=== PATIENT | female | born 1950 | race Caucasian/White ===

== ENCOUNTER 2017-10-24 15:38 | Inpatient (IN) | payer MEDICARE ==
[2017-10-24 16:41] LABS: Bilirubin Small (Negative); Blood, Urine Trace (Negative); Glucose, Urine (Dipstick) 250 mg/dL (Negative); Ketone, Urine Negative (Negative); Nitrite Negative (Negative); Protein, Urine (Dipstick) 100 mg/dL (Neg-Trace)
[2017-10-24 16:43] LABS: #Eosinphils 0.1 thou/uL (0.0-0.7); #Lymphocytes 1.8 thou/uL (1.20-3.40); #Monocytes 1.1 thou/uL (0.11-0.59); #Neutrophils 16.7 thou/uL (1.40-6.50); %Basophils 0.1 % (0.0-1.0); %Eosinophils 0.5 % (0.0-10.0); %Monocytes 5.7 % (0.0-10.0); Hematocrit 31.7 % (36.0-47.0); Mean Platelet Volume 6.4 fL (7.4-10.4); White Blood Cell (WBC) Count 19.7 thou/uL (4.8-10.8)
[2017-10-24 16:52] LABS: Bacteria/HPF 1+ HPF (None Seen)
[2017-10-24 16:53] LABS: Yeast-All Forms None Seen HPF (None Seen)
--- NOTE | 2017-10-24 17:18 | RAD ---
PORTABLE CHEST: 10/24/17 HISTORY: Pneumonia. No comparison. There is patchy infiltrate in the left mid and lower lung. Heart is mildly enlarged. No evidence of v ascular congestion. No significant effusion. IMPRESSION: Evidence of infiltrate in the left mid and lower lung. Upright PA and lateral views of the chest is r ecommended for better evaluation of the lung marques. POS: [facility]
[2017-10-24] MEDS ORDERED: Multivitamins, Adult 10 ML, Thiamine HCl 100 MG, Folic Acid 1 MG in Dextrose 5 %-0.45 %... IV ONE ×4 (17:30)
[2017-10-24 18:15] LABS: ALT (SGPT) 151 U/L (8-55); AST (SGOT) 191 U/L (5-34); Alkaline Phosphatase 689 U/L (40-150); Anion Gap 12 mmol/L (10-20); BUN (Urea Nitrogen) 10 mg/dL (9.8-20.1); Bilirubin, Total 0.3 mg/dL (0.2-1.2); Calc. Creatinine Clearance 0 mL/min (70-130); Calcium 8.3 mg/dL (7.8-10.44); Carbon Dioxide 23 mmol/L (23-31); Chloride 106 mmol/L (98-107); Estimated GFR-MDRD 69; Lipase 6 U/L (8-78); Protein, Total 6.5 g/dL (6.0-8.3)
[2017-10-24] MEDS ORDERED: Ondansetron HCl/PF 4 MG/2 ML Vial IVP PRN (19:07)
[2017-10-24] MEDS ORDERED: Ondansetron ODT 4 MG TAB SL PRN (19:07)
[2017-10-24] MEDS ORDERED: Zolpidem Tartrate 5 MG TAB PO PRN (19:11)
[2017-10-24] MEDS ORDERED: Acetaminophen 325 MG TAB PO PRN (19:11)
[2017-10-24] MEDS ORDERED: Guaifenesin DM 100-10/5 ML UDCUP PO PRN (19:11)
[2017-10-24] MEDS ORDERED: Azithromycin 500 MG in Sodium Chloride 0.9% 250 ML 250 ML IVPB SCH (20:00)
--- NOTE | 2017-10-24 22:25 | HP ---
DATE OF ADMISSION: 10/24/2017 ADMITTING PHYSICIAN: Dr. Bonifacio Garcia. PRIMARY CARE PHYSICIAN: Dr. Alek Powell. CHIEF COMPLAINT: Shortness of breath, chills. HISTORY OF PRESENT ILLNESS: Patient is a 67-year-old female that presents complaining of 4 to 5 days of upper respiratory symptoms. She was seen and assessed by her primary care physician and started Levaquin, Friday. She presents with continued shortness of breath, coughing, and chills. She denie s chest pain, productive sputum, or any other review of systems at this time. REVIEW OF SYSTEMS: The following complete review of systems was negative, unless otherwise mentioned in the HPI or below: Constitutional: Weight loss or gain, sense of well-being, ability to conduct usual activities, exerc ise tolerance. Skin/Breast: Rash, itching, changes in hair growth or loss, nail changes, breast lumps, tenderness, swelling, nipple discharge. Eyes: Vision, double vision, tearing, blind spots, pain. ENT/Mouth: Headaches (location, time of onset, duration, precipitating factors), vertigo, lightheade dness, injury. Vision, double vision, tearing, blind spots, pain, nose bleeding, colds, obstruction, discharge, dental difficulties, gingival bleeding, dentures, neck stiffness, pain, tenderness, masses in thyroid or other areas. Cardiovascular: Precordial pain, substernal distress, palpitations, syncope, dyspnea on exertion, or thopnea, nocturnal paroxysmal dyspnea, edema, cyanosis, hypertension, heart murmurs, varicosities, ph lebitis, claudication. Respiratory: Pain, shortness of breath, wheezing, stridor, cough, hemoptysis, fever or night sweats. Gastrointestinal: Poor appetite, dysphagia, indigestion, abdominal pain, heartburn, eructation, naus ea, vomiting, hematemesis, jaundice, constipation, or diarrhea, abnormal stools (bijan-colored, tarry, bloody, greasy, foul smelling), flatulence, hemorrhoids, recent changes in bowel habits. Genitourinary: Urgency, frequency, dysuria, nocturia, hematuria, polyuria, oliguria, unusual (or eloy nge in) color of urine, stones, hesitancy, change in size of stream, dribbling, acute retention or in continence, libido, potency. Musculoskeletal: Pain, swelling, redness or heat of muscles or joints, limitation, of motion, muscul ar weakness, atrophy, cramps. Neurologic/Psychiatric: Convulsions, paralyzes, tremor, incoordination, paresthesias, difficulties w ith memory of speech, sensory or motor disturbances, or muscular coordination (ataxia, tremor), emoti onal problems, anxiety, depression, previous psychiatric care, unusual perceptions, hallucinations. Allergy/Immunologic: Skin rash, anemia, bleeding tendency, polydipsia, polyuria, intolerance to heat or cold. PAST MEDICAL HISTORY: Significant for ETOH abuse. HOME MEDICATIONS: Levaquin 750 mg every day. ALLERGIES: No known drug allergies. PAST SURGICAL HISTORY: Surgery of cholecystectomy. Surgical history of hysterectomy. SOCIAL HISTORY: Once again, she drinks 6-8 beers daily. No tobacco. Lives with family. FAMILY HISTORY: Positive for alcoholism. PHYSICAL EXAMINATION: VITAL SIGNS: Temperature 98.4, blood pressure 123/81, pulse 91, respirations 16, and satting 100% on room air. GENERAL: She is in no acute distress, nontoxic, cooperative. HEAD: Normocephalic, atraumatic. EYES: PERRL. Extraocular muscles intact. ENT: Ears, nose and throat exam within normal limits. NECK: Supple, full range of motion. Trachea midline. CHEST: No respiratory distress, although the patient does have rhonchi and rales. CARDIOVASCULAR: Regular rate and rhythm. No murmur, regurg, or gallops. ABDOMEN: No peritoneal signs. No rigidity, no guarding, no pulsatile masses, no distention. Positi ve bowel sounds. EXTREMITIES: No clubbing, cyanosis, or edema. SKIN: Normal. Warm, dry, normal in color. PSYCHIATRIC: Normal affect. LABORATORY DATA AND IMAGES: CBC shows a white count of 19.7, hemoglobin 10, hematocrit 31.7, platele ts 691, 85% neutrophils. CMP shows sodium of 137, potassium 4.1, BUN 10, creatinine 0.83, glucose 10 8. AST 191, ALT 151, alkaline phosphatase 689, albumin 2.5, lipase 6. Urinalysis phuong, cloudy, pos itive for protein, 250 glucose, trace blood, trace leukocyte esterase. Urine bacteria 1+, but 11-20 squamous cells indicating possible contamination. Chest x-ray performed in the emergency room shows evidence of infiltrate in the left mid and left lower lung. ASSESSMENT AND PLAN: 1. Left middle lower lobe pneumonia. 2. Alcohol abuse. 3. Transaminitis. PLAN: Patient will be admitted to the medical floor, we will treat her with Rocephin and azithromyci n. Patient will be tested for acute hepatitis. We will also administer IV fluids with multivitamins , thiamine, and folate. We will also watch the patient closely for development of delirium tremens. We will provide DVT prophylaxis with SCD devices. We will provide additional supportive therapy as needed.
[2017-10-24] MEDS: Sodium Chloride 0.9% 1,000 ML IV SCH (23:27)
[2017-10-24] MEDS: Azithromycin 500 MG in Sodium Chloride 0.9% 250 ML 250 ML IVPB SCH (23:28)
[2017-10-24] MEDS: Ibuprofen 200 MG TAB PO PRN (23:52)
[2017-10-25 04:41] VITALS: BMI 28.4
[2017-10-25 04:43] LABS: #Basophils 0.1 thou/uL (0.0-0.2); #Eosinphils 0.1 thou/uL (0.0-0.7); #Monocytes 1.2 thou/uL (0.11-0.59); %Basophils 0.4 % (0.0-1.0); %Eosinophils 0.9 % (0.0-10.0); %Lymphocytes 13.1 % (21.0-51.0); Hematocrit 24.6 % (36.0-47.0); Mean Platelet Volume 6.1 fL (7.4-10.4); Red Blood Cell (RBC) Count 2.92 mill/uL (4.20-5.40); White Blood Cell (WBC) Count 15.4 thou/uL (4.8-10.8)
[2017-10-25] MEDS: Sodium Chloride 0.9% 1,000 ML IV SCH (06:10)
--- NOTE | 2017-10-25 09:06 | PDOC.PN ---
- Subjective Encounter Start Date: 10/25/17 Encounter Start Time: 09:06 Subjective: feeling better, my appetite is better. fever last night - Objective MAR Reviewed: Yes Vital Signs & Weight: Vital Signs (12 hours) Temp Pulse Resp BP Pulse Ox 10/25/17 04:00 97.4 F L 61 20 112/70 100 10/24/17 23:54 100.3 F H 64 20 132/67 97 Weight Weight 145 lb 8.081 oz Result Diagrams: 10/25/17 03:34 10/24/17 17:43 Radiology Reviewed by me: Yes Phys Exam - Physical Examination Constitutional: NAD HEENT: PERRLA, moist MMs, sclera anicteric Neck: supple, full ROM Respiratory: no rhonchi Cardiovascular: RRR, no significant murmur Gastrointestinal: soft, non-tender, no distention, positive bowel sounds Musculoskeletal: no edema, pulses present, edema present Neurological: non-focal Psychiatric: normal affect, A&O x 3 Skin: no rash Dx/Plan (1) PNA (pneumonia) Code(s): J18.9 - PNEUMONIA, UNSPECIFIED ORGANISM Status: Acute (2) Transaminitis Code(s): R74.0 - NONSPEC ELEV OF LEVELS OF TRANSAMNS & LACTIC ACID DEHYDRGNSE Status: Acute - Plan cont current plan of care, plan discussed w/ family, continue antibiotics * .
[2017-10-25] MEDS ORDERED: cefTRIAXone\\ROCEPHIN 1 GM in Sodium Chloride 0.9% 100 ML IVPB SCH (14:15)
[2017-10-25] MEDS: Ibuprofen 200 MG TAB PO PRN (15:15)
[2017-10-25] MEDS ORDERED: cefTRIAXone\\ROCEPHIN 1 GM, Syringe 0.4 ML in Sterile Water 9.6 ML SLOW IVP SCH (18:00)
[2017-10-25] MEDS: Azithromycin 500 MG in Sodium Chloride 0.9% 250 ML 250 ML IVPB SCH (22:38)
[2017-10-26] MEDS: Ibuprofen 200 MG TAB PO PRN ×2 (03:31→19:06)
[2017-10-26] MEDS ORDERED: FLU VACC TS2017-18 (>65YR) 0.5 ML SYRINGE IM ONE (09:00)
[2017-10-26] MEDS ORDERED: Multivit, Therapeutic 1 TAB PO SCH ×2 (09:30→10:30)
[2017-10-26] MEDS ORDERED: Folic Acid 1 MG TAB PO SCH ×2 (09:30→10:30)
[2017-10-26 09:52] LABS: #Basophils 0.1 thou/uL (0.0-0.2); #Eosinphils 0.4 thou/uL (0.0-0.7); #Lymphocytes 2.2 thou/uL (1.20-3.40); #Monocytes 1.3 thou/uL (0.11-0.59); #Neutrophils 13.7 thou/uL (1.40-6.50); %Basophils 0.4 % (0.0-1.0); %Eosinophils 2.1 % (0.0-10.0); %Lymphocytes 12.6 % (21.0-51.0); %Monocytes 7.2 % (0.0-10.0); Hematocrit 25.4 % (36.0-47.0); Mean Platelet Volume 5.8 fL (7.4-10.4); Red Blood Cell (RBC) Count 3.05 mill/uL (4.20-5.40); White Blood Cell (WBC) Count 17.6 thou/uL (4.8-10.8)
[2017-10-26 10:06] LABS: ALT (SGPT) 134 U/L (8-55); AST (SGOT) 136 U/L (5-34); Alkaline Phosphatase 571 U/L (40-150); Anion Gap 9 mmol/L (10-20); BUN (Urea Nitrogen) 9 mg/dL (9.8-20.1); Bilirubin, Total 0.3 mg/dL (0.2-1.2); Calc. Creatinine Clearance 69 mL/min (70-130); Calcium 8.5 mg/dL (7.8-10.44); Carbon Dioxide 26 mmol/L (23-31); Chloride 106 mmol/L (98-107); Estimated GFR-MDRD 70; Globulin 3.5 g/dL (2.4-3.5); Magnesium 1.7 mg/dL (1.6-2.6); Phosphorus 3.9 mg/dL (2.3-4.7); Protein, Total 5.6 g/dL (6.0-8.3)
[2017-10-26] MEDS ORDERED: Cefepime 2 GM in Sodium Chloride 0.9% 100 ML IVPB SCH (13:45)
[2017-10-26] MEDS: Cefepime 2 GM, Syringe 2.5 ML in Sterile Water 10 ML SLOW IVP SCH (15:42)
--- NOTE | 2017-10-26 17:07 | RAD ---
RADIOGRAPH CHEST 1 VIEW: Date: 10-26-17 Time: 4:38 p.m. HISTORY: 67-year-old female with pneumonia and persistent fever. COMPARISON: 10-24-17 FINDINGS: Again noted are the infiltrates in the left mid and lower lung zones, in a patchy, mixed interstitial and alveolar pattern, associated with a shaggy left heart border and left lower lobe air bronchogram . Also again noted is the shaggy right cardiac border. Adjacent focal nodular interstitial infiltrate in the right midlung zone appears worse on the current study compared to the previous. Lung volumes are again low. No pneumothorax. IMPRESSION: 1. Bilateral infiltrates, left greater than right. 2. The infiltrates appear slightly worse, especially on the right side, compared to two days ago. It is uncertain rather this apparent difference is real or is due to technical differences. Furthermore, it is uncertain which components of the infiltrates are chronic and which are acute. 3. Continued follow up is recommended. FELISHA POS: [facility]
[2017-10-26] MEDS: Saccharomyces boulardii 250 MG CAP PO SCH (20:25)
--- NOTE | 2017-10-26 21:05 | PDOC.PN ---
- Subjective Encounter Start Date: 10/26/17 Encounter Start Time: 14:30 Patient seen and examined. Feels gen weak. Cough with some production. No overnight events - Objective Vital Signs & Weight: Vital Signs (12 hours) Temp Pulse Resp BP Pulse Ox 10/26/17 19:50 100.5 F H 98 20 121/67 97 10/26/17 19:07 100.5 F H Weight Weight 145 lb 8.081 oz Result Diagrams: 10/27/17 04:30 10/27/17 04:30 Radiology Reviewed by me: Yes (CXR - left sided infiltrate) Phys Exam - Physical Examination Constitutional: NAD Respiratory: no wheezing Coarse bibasilar rales/rhonchi, Symmetrical, Trachea midline Cardiovascular: RRR, no rub no heaves/pulsations Gastrointestinal: soft, non-tender, no distention, positive bowel sounds Musculoskeletal: no edema Neurological: non-focal, normal sensation, moves all 4 limbs Psychiatric: normal affect, A&O x 3 Dx/Plan - Plan continue antibiotics, out of bed/ambulate, DVT proph w/SCDs IMPRESSION: 1. Sepsis due to CAP ?Klebsiella - failed outpt Rx - persistent fever 2. Chronic Alcoholism - counselled. 3. Abn LFTs - slowly improving 4. Chronic Anemia PLAN: * Change Ceftriaxone to Cefepime * Cont Azithromycin * AM labs * consult ID * Repeat CXR * RUQ ultrasound due to abn LFTs * Add thiamine/folic/MVM * Resp viral panel * Urine antigen for Strep pneumonia/Legionella Review of Systems - Review of Systems Constitutional: negative: Fever, Chills, Sweats, Weakness, Malaise Gastrointestinal: negative: Nausea, Vomiting, Abdominal Pain, Diarrhea, Constipation, Melena, Hematochezia Genitourinary: negative: Dysuria, Frequency, Incontinence, Hematuria, Retention - Medications/Allergies Allergies/Adverse Reactions: Allergies Allergy/AdvReac Type Severity Reaction Status Date / Time No Known Allergies Allergy Verified 10/25/17 04:39 Medications: Current Medications Acetaminophen (Tylenol) 650 mg PO Q4H PRN PRN Reason: Headache/Fever or Pain Folic Acid (Folvite) 1 mg PO DAILY [facility] Guaifenesin/Dextromethorphan (Robitussin Dm) 15 ml PO Q4H PRN PRN Reason: Cough Azithromycin 500 mg/ Sodium (Chloride) 250 mls @ 250 mls/hr IVPB Q24HR [facility] Last Admin: 10/25/17 22:38 Dose: 250 mls Cefepime HCl 2 gm/ Syringe 2.5 (ml/ Sterile Water) 12.5 mls @ 150 mls/hr SLOW IVP 0200,1400 [facility] Last Admin: 10/26/17 15:42 Dose: 12.5 mls Ibuprofen (Motrin) 600 mg PO Q6H PRN PRN Reason: fever Last Admin: 10/26/17 19:06 Dose: 600 mg Multivitamins (Theragran) 1 tab PO DAILY [facility] Saccharomyces Boulardii (Florastor) 250 mg PO HS [facility] Last Admin: 10/26/17 20:25 Dose: 250 mg Sodium Chloride (Flush - Normal Saline) 10 ml IVF PRN PRN PRN Reason: Saline Flush Thiamine HCl (Thiamine) 100 mg PO DAILY [facility]
[2017-10-26] MEDS: Azithromycin 500 MG in Sodium Chloride 0.9% 250 ML 250 ML IVPB SCH (22:31)
[2017-10-26 23:02] LABS: LegU Control Bar Appear? YES (CONTROL BAR); LegionellaU Control Bkground? CLEAR/WHITE (CLR/WHITE); Strp pneuU Control Background? CLEAR/WHITE (CLR/WHITE); Strp pneumo Control Bar Appear YES (CONTROL BAR)
[2017-10-27] MEDS: Cefepime 2 GM, Syringe 2.5 ML in Sterile Water 10 ML SLOW IVP SCH ×2 (03:00→15:09)
[2017-10-27 04:47] LABS: #Eosinphils 0.5 thou/uL (0.0-0.7); #Lymphocytes 1.8 thou/uL (1.20-3.40); #Monocytes 1.5 thou/uL (0.11-0.59); #Neutrophils 14.5 thou/uL (1.40-6.50); %Basophils 0.2 % (0.0-1.0); %Eosinophils 2.6 % (0.0-10.0); %Lymphocytes 9.8 % (21.0-51.0); %Monocytes 8.1 % (0.0-10.0); Hematocrit 25.4 % (36.0-47.0); Mean Platelet Volume 5.6 fL (7.4-10.4); Red Blood Cell (RBC) Count 3.06 mill/uL (4.20-5.40); White Blood Cell (WBC) Count 18.3 thou/uL (4.8-10.8)
[2017-10-27 05:03] LABS: ALT (SGPT) 135 U/L (8-55); AST (SGOT) 133 U/L (5-34); Alkaline Phosphatase 568 U/L (40-150); Anion Gap 10 mmol/L (10-20); BUN (Urea Nitrogen) 11 mg/dL (9.8-20.1); Bilirubin, Total 0.3 mg/dL (0.2-1.2); Calc. Creatinine Clearance 65 mL/min (70-130); Calcium 8.1 mg/dL (7.8-10.44); Carbon Dioxide 24 mmol/L (23-31); Chloride 106 mmol/L (98-107); Estimated GFR-MDRD 65; Globulin 3.4 g/dL (2.4-3.5); Protein, Total 5.4 g/dL (6.0-8.3)
[2017-10-27] MEDS: Folic Acid 1 MG TAB PO SCH (08:22)
[2017-10-27] MEDS: Multivit, Therapeutic 1 TAB PO SCH (08:22)
--- NOTE | 2017-10-27 08:36 | ULT ---
RIGHT UPPER QUADRANT ULTRASOUND: DATE: 10/27/17. COMPARISON: None. HISTORY: Abnormal liver function tests. TECHNIQUE: Multiplanar, cunningham scale sonographic imaging of the right upper quadrant obtained. FINDINGS: The pancreas is poorly assessed secondary to obscuration by bowel gas. No focal liver lesion or intrahepatic biliary dilatation. The common bile duct measures in the 5-7 m m range. The gallbladder is nonvisualized, presumably on the basis of prior cholecystectomy. The right kidney measures 10.4 cm in craniocaudal dimension. There is an exophytic cyst emanating fr om the upper pole of the right kidney measuring 3.7 cm. The right kidney demonstrates no evidence fo r stone, hydronephrosis, or mass lesion. IMPRESSION: Status post cholecystectomy. No acute findings. POS: [facility]
[2017-10-27] MEDS: NS 0.9% w/ 20 MEQ KCL 1,000 ML/1,000 ML BAG IV SCH ×2 (11:13→22:17)
[2017-10-27] MEDS: Potassium Chloride 20 MEQ TAB PO SCH ×2 (11:13→15:10)
[2017-10-27] MEDS: Ibuprofen 200 MG TAB PO PRN (17:14)
--- NOTE | 2017-10-27 17:20 | PDOC.PN ---
- Subjective Encounter Start Date: 10/27/17 Encounter Start Time: 13:00 Patient seen and examined. Feels gen weak. Productive cough. No overnight events - Objective MAR Reviewed: Yes Vital Signs & Weight: Vital Signs (12 hours) Temp Pulse Resp BP Pulse Ox 10/27/17 12:00 99.7 F H 85 20 106/66 97 10/27/17 08:12 98.5 F 90 20 134/77 97 10/27/17 08:00 98.5 F 90 20 Weight Weight 145 lb 8.081 oz I&O: 10/26/17 10/27/17 10/28/17 06:59 06:59 06:59 Intake Total 970 Balance 970 Result Diagrams: 10/27/17 04:30 10/27/17 04:30 Radiology Reviewed by me: Yes (CXR - worsening, RUQ - neg) Phys Exam - Physical Examination Constitutional: NAD Respiratory: no wheezing, no rhonchi B/L rales at bases Cardiovascular: RRR, no rub Gastrointestinal: soft Musculoskeletal: no edema Neurological: moves all 4 limbs Psychiatric: A&O x 3 Dx/Plan - Plan out of bed/ambulate, DVT proph w/SCDs IMPRESSION: 1. Sepsis due to CAP ?Klebsiella - failed outpt Rx - persistent fever 2. Chronic Alcoholism - counselled. 3. Abn LFTs - slowly improving 4. Chronic Anemia PLAN: * Cont Cefepime and Azithromycin * AM labs * Await ID input * Add thiamine/folic/MVM * Resp viral panel - neg * Urine antigen for Strep pneumonia/Legionella - neg Review of Systems - Review of Systems Cardiovascular: negative: Chest Pain, Palpitations, Orthopnea, Paroxysmal Noc. Dyspnea, Edema, Light Headedness Gastrointestinal: negative: Nausea, Vomiting, Abdominal Pain, Diarrhea, Constipation, Melena, Hematochezia - Medications/Allergies Allergies/Adverse Reactions: Allergies Allergy/AdvReac Type Severity Reaction Status Date / Time No Known Allergies Allergy Verified 10/25/17 04:39 Medications: Current Medications Acetaminophen (Tylenol) 650 mg PO Q4H PRN PRN Reason: Headache/Fever or Pain Folic Acid (Folvite) 1 mg PO DAILY [facility] Last Admin: 10/27/17 08:22 Dose: 1 mg Guaifenesin/Dextromethorphan (Robitussin Dm) 15 ml PO Q4H PRN PRN Reason: Cough Azithromycin 500 mg/ Sodium (Chloride) 250 mls @ 250 mls/hr IVPB Q24HR [facility] Last Admin: 10/26/17 22:31 Dose: 250 mls Cefepime HCl 2 gm/ Syringe 2.5 (ml/ Sterile Water) 12.5 mls @ 150 mls/hr SLOW IVP 0200,1400 [facility] Last Admin: 10/27/17 15:09 Dose: 12.5 mls Potassium Chloride/Sodium Chloride (Ns 0.9% W/ 20 Meq Kcl) 1,000 ml in 1,000 mls @ 75 mls/hr IV .[id number] [facility] Last Admin: 10/27/17 11:13 Dose: 1,000 mls Ibuprofen (Motrin) 600 mg PO Q6H PRN PRN Reason: fever Last Admin: 10/27/17 17:14 Dose: 600 mg Multivitamins (Theragran) 1 tab PO DAILY [facility] Last Admin: 10/27/17 08:22 Dose: 1 tab Potassium Chloride (K-Dur) 20 meq PO TID-WM [facility] Last Admin: 10/27/17 15:10 Dose: 20 meq Saccharomyces Boulardii (Florastor) 250 mg PO HS [facility] Last Admin: 10/26/17 20:25 Dose: 250 mg Sodium Chloride (Flush - Normal Saline) 10 ml IVF PRN PRN PRN Reason: Saline Flush Thiamine HCl (Thiamine) 100 mg PO DAILY [facility] Last Admin: 10/27/17 08:22 Dose: 100 mg
[2017-10-27] MEDS: Saccharomyces boulardii 250 MG CAP PO SCH (19:54)
--- NOTE | 2017-10-27 21:15 | CON ---
DATE OF CONSULTATION: 10/27/2017 REASON: Pneumonitis, weakness, anemia. HISTORY OF PRESENT ILLNESS: A 67-year-old who after her about 5 years ago, started uriel marquez more heavily usually from Friday until Friday. She would start drinking somewhere around 4:0 0 p.m. and would continue until late at night and was otherwise without any diagnosed medical problem s. A few months ago she noticed the onset of arthralgias which were in various joints and she also n oticed inability to grab thinks and weakness of the hand laundry folder right and the left side. She did not g o to a doctor and then worried too much about it and then about 3 weeks ago approximately, she starte d noticing progressively worsening weakness which is generalized, some dizziness and dry cough interm ittently. At that point, she quit completely intake of alcoholic beverages. She went to the emergen cy room at [facility] where she had an evaluation and was told to have abnormal l iver function tests and ammonia. She was given levofloxacin and discharged. She went to see Dr. Jack bocanegra later on because of lack of improvement and he referred her for admission here. Mild headaches intermittently. No visual symptoms, sore throat, odynophagia, dysphagia, no dyspnea, no sputum produ ction. No hemoptysis, no back pain, no abdominal pain or diarrhea. No genitourinary symptoms. Stil l with the weakness of the laundry folder in the hands and also weak in upper and lower extremities, some arthr algias. No skin disorder. No neurological findings otherwise. MEDICAL HISTORY: History of alcohol dependency syndrome for the past 5 years after her passe d away. ALLERGIES: None. PAST SURGICAL HISTORY: Cholecystectomy, hysterectomy. SOCIAL HISTORY: As above, Never a smoker. Lives by herself in an apartment. FAMILY HISTORY: Positive for alcoholism. PHYSICAL EXAMINATION: VITAL SIGNS: T-max 100.3 and now 100.5 recently, blood pressure 106/66, pulse 85, respirations 20, O 2 saturation 97%. SKIN: With no skin findings of significance, peripheral IV access. No Osman catheter. HEENT: Ocular movements are conjugate. Pale conjunctivae. Nasal passages patent. Oral cavity norm al. Numerous teeth in place with some decay. NECK: Supple, no jugular venous distention. LUNGS: With bibasilar inspiratory crackles. Symmetrically distributed right and left lungs. HEART: S1, S2, regular rate. No S3 or S4. ABDOMEN: Soft, not distended or tender. No ascites. No bladder distention. No organomegaly. Maribel ent has a very weak handgrip right and left side. She has weakness in the flexor and extensor muscle s of upper extremities as well as hip flexors are weak. Plantar responses are flexor. Pulses are 1+ in dorsalis pedis. No obvious joint inflammatory activity noted at this time. Cognitive function a ppears to be intact. LABORATORY DATA: White cell count 19.7, now 18.3, hemoglobin 8.1, MCV 82, platelets 562 with a predo minance of mature neutrophils, lymphocyte count 1.8. Chemistry with sodium 137, creatinine 0.87, AST 191, ALT 151, alkaline phosphatase 689 and now 568. CRP 15.85, globulin 3.4, albumin 2.5 and now 2. 0. Lipase normal. Urinalysis with proteinuria 100, glycosuria, elevated WBCs 11-20, RBCs 4-6. Legi onella pneumophila and strep pneumonia antigen negative, hepatitis serology negative. Chest x-ray wi th bilateral lung infiltrates, left greater than right. Abdominal ultrasound, cholecystectomy, but n o acute findings. ASSESSMENT: 1. Weakness of hand laundry folder and weakness in the upper extremities suggestive of myopathy. 2. Arthralgias 3. Chronic respiratory symptoms with cough and interstitial pneumonitis. 4. Elevated liver enzymes, either secondary to hepatitis or due to myopathy with muscle enzyme relea se. 5. Anemia with possible hemolysis. DISCUSSION: Differential diagnosis includes an autoimmune syndrome with either systemic lupus erythe matosus or dermatomyositis or other form of myositis, need to rule out HIV infection as usual and pos sibility of an infectious pneumonitis is less likely in view of the lack of response to treatment amanda s far. Check autoimmune panel, complement CPK, HIV, RPR.
[2017-10-27] MEDS: Azithromycin 500 MG in Sodium Chloride 0.9% 250 ML 250 ML IVPB SCH (22:15)
[2017-10-28] MEDS: Cefepime 2 GM, Syringe 2.5 ML in Sterile Water 10 ML SLOW IVP SCH ×2 (02:12→16:07)
[2017-10-28 04:36] LABS: #Basophils 0.1 thou/uL (0.0-0.2); #Eosinphils 0.5 thou/uL (0.0-0.7); #Lymphocytes 1.7 thou/uL (1.20-3.40); #Monocytes 1.7 thou/uL (0.11-0.59); #Neutrophils 14.5 thou/uL (1.40-6.50); %Basophils 0.4 % (0.0-1.0); %Eosinophils 2.6 % (0.0-10.0); %Lymphocytes 9.1 % (21.0-51.0); Hematocrit 23.3 % (36.0-47.0); Mean Platelet Volume 5.7 fL (7.4-10.4); White Blood Cell (WBC) Count 18.4 thou/uL (4.8-10.8)
[2017-10-28 04:45] LABS: Anion Gap 8 mmol/L (10-20); BUN (Urea Nitrogen) 13 mg/dL (9.8-20.1); Calc. Creatinine Clearance 69 mL/min (70-130); Calcium 8.1 mg/dL (7.8-10.44); Carbon Dioxide 23 mmol/L (23-31); Chloride 110 mmol/L (98-107); Estimated GFR-MDRD 70
[2017-10-28] MEDS ORDERED: Ondansetron HCl/PF 4 MG/2 ML Vial IVP PRN (08:52)
[2017-10-28] MEDS ORDERED: Ondansetron ODT 4 MG TAB PO PRN (08:52)
[2017-10-28] MEDS ORDERED: ALPRAZolam 0.25 MG TAB PO PRN (11:14)
[2017-10-28] MEDS ORDERED: ISOVUE-370 76%-LOCM 1 ML ONE (11:51)
[2017-10-28] MEDS: Folic Acid 1 MG TAB PO SCH (12:20)
[2017-10-28] MEDS: Multivit, Therapeutic 1 TAB PO SCH (12:20)
[2017-10-28] MEDS: Potassium Chloride 20 MEQ TAB PO SCH ×3 (12:20→19:43)
[2017-10-28] MEDS: D5 1/2 NS w/20 mEq KCL 1,000 ML IV SCH (12:32)
[2017-10-28] MEDS: Ibuprofen 200 MG TAB PO PRN (14:50)
--- NOTE | 2017-10-28 16:31 | PRG ---
DATE OF SERVICE: 10/28/2017 SUBJECTIVE: Ms. Oleary looks a little better today. She is not diaphoretic. OBJECTIVE: GENERAL: She is awake, alert, oriented. HEENT: Ocular movements are conjugate. Pale conjunctiva. Oral cavity normal. LUNGS: With scattered crackles, particularly on the left side. Lungs with findings described above. CARDIAC: S1, S2, regular rate. ABDOMEN: Soft, nontender. EXTREMITIES: She was able to give me a better almond grinder this morning, but she still has some weakness. VITAL SIGNS: The vital signs showed a T-max of 100.6, BP 110/77, pulse 86, respirations 18. LABORATORY DATA: The labs with normal complements. Today's white cell count is 18.4, hemoglobin 7.3 , platelets 539. The HIV serology nonreactive. Some tests are pending still. LDH was 240, little b it higher than normal. CK was less than 9, which is depressed. The CT abdomen has been ordered upon discussions with Dr. Mayfield. ASSESSMENT AND DISCUSSION: History of alcohol dependence syndrome with evidence of hepatitis, possi florentin alcoholic hepatitis or other phenomenon associated with weakness of hand almond grinder and weakness of upp er extremities, low grade fever, chronic respiratory symptoms with cough, interstitial pneumonitis an d areas of alveolar consolidation and anemia. The previously bleed discussed possibilities include a n autoimmune syndrome with neuropathy versus the conjunction of alcoholic neuropathy and hepatitis pl us superimposed area of the pneumonia is considered. Atypical pathogens including mycobacterial and fungal pathogens will have to be considered as well. I will submit workup for that. Waiting all the test results to proceed with workup and treatment according to the diagnoses established.
[2017-10-28] MEDS: Piperacillin/Tazobactam 3.375 GM in Sodium Chloride 0.9% 100 ML IVPB SCH ×2 (17:57→21:16)
--- NOTE | 2017-10-28 19:40 | CT ---
CT CHEST WITH IV CONTRAST CT ABDOMEN AND PELVIS WITH IV CONTRAST 10/28/17 PROVIDED CLINICAL HISTORY: Fever and sepsis. FINDINGS: The heart, pericardium and great vessels demonstrate no acute abnormality. Vascular calcification inc luding coronary calcium was demonstrated. There is no evidence for thoracic lymph node enlargement. T he airway appears patent and of normal caliber. A tracheal diverticulum is seen in the region of the thoracic inlet. There are predominantly subpleural reticular opacities present including the nondepen dent portions of each lung compatible with changes of pulmonary fibrosis. Associated ground glass opa [place] involving both upper lobes could reflect alveolitis or superimposed infectious change. There is trace left pleural fluid. There is no evidence for pneumothorax. There are simple appearing cysts involving the right kidney and caudal margin of the right hepatic lo be. Changes of prior cholecystectomy are seen. The spleen, pancreas, kidneys and adrenal glands appea r unremarkable. There is conspicuous rectal fecal retention. There is minimal haziness of the presacral/perirectal fa t. There is no bowel dilatation, free fluid or free air apparent. There is nonspecific bilateral perinep hric fat stranding. The osseous structures demonstrate no concerning osteoblastic or osteolytic lesions. IMPRESSION: 1. Changes of pulmonary fibrosis with areas of ground glass opacity possibly reflecting alveolit is or pneumonia. 2. Bilateral perinephric fat stranding, nonspecific . Please correlate with concerns for pyelone phritis. There is no parenchymal renal abnormality to suggest such. 3. Conspicuous rectal fecal retention with minimal haziness of the presacral fat. Please correla te with concerns for stercoral proctitis. POS: [facility]
[2017-10-28] MEDS: Saccharomyces boulardii 250 MG CAP PO SCH (20:13)
[2017-10-28] MEDS ORDERED: Enoxaparin Sodium 40 MG/0.4 ML SYRINGE SC SCH (21:00)
--- NOTE | 2017-10-28 21:15 | PDOC.PN ---
- Subjective Encounter Start Date: 10/28/17 Encounter Start Time: 12:00 Patient seen and examined. No new complaints. No overnight events. Cough. Gen weakness + - Objective MAR Reviewed: Yes Vital Signs & Weight: Vital Signs (12 hours) Temp Pulse Resp BP Pulse Ox 10/28/17 19:38 98.1 F 80 16 98 10/28/17 19:35 98.1 F 80 16 115/65 98 10/28/17 16:00 98.2 F 100 16 119/78 98 10/28/17 13:12 99.4 F 86 18 110/77 97 10/28/17 12:00 100.6 F H Weight Weight 145 lb 8.081 oz I&O: 10/27/17 10/28/17 10/29/17 06:59 06:59 06:59 Intake Total 970 3200 Balance 970 3200 Result Diagrams: 10/29/17 04:26 10/29/17 04:26 Phys Exam - Physical Examination Constitutional: NAD Respiratory: no wheezing, no rhonchi Bibasilar rales Cardiovascular: RRR, no rub Gastrointestinal: soft Neurological: moves all 4 limbs Dx/Plan - Plan DVT proph w/lovenox, DVT proph w/SCDs IMPRESSION: 1. Sepsis due to CAP ?Klebsiella - failed outpt Rx - with persistent fever - will r/o other etiology 2. Chronic Alcoholism - counselled. 3. Abn LFTs - slowly improving 4. Chronic Anemia PLAN: * Cont Cefepime and Azithromycin * AM labs * ID following - CT chest Abd Pelvis - I d/w Dr Chen * Cont thiamine/folic/MVM * Labs pending * HIV neg * Monitor HH * Adjust IV fluids Review of Systems - Review of Systems Constitutional: fever, weakness. negative: chills, sweats, malaise Gastrointestinal: Nausea. negative: Vomiting, Abdominal Pain, Diarrhea, Constipation, Melena, Hematochezia - Medications/Allergies Allergies/Adverse Reactions: Allergies Allergy/AdvReac Type Severity Reaction Status Date / Time No Known Allergies Allergy Verified 10/25/17 04:39 Medications: Current Medications Acetaminophen (Tylenol) 650 mg PO Q4H PRN PRN Reason: Headache/Fever or Pain Alprazolam (Xanax) 0.25 mg PO BIDPRN PRN PRN Reason: Anxiety Enoxaparin Sodium (Lovenox) 40 mg SC 2100 [facility] Last Admin: 10/28/17 20:13 Dose: 40 mg Folic Acid (Folvite) 1 mg PO DAILY [facility] Last Admin: 10/28/17 12:20 Dose: 1 mg Guaifenesin/Dextromethorphan (Robitussin Dm) 15 ml PO Q4H PRN PRN Reason: Cough Azithromycin 500 mg/ Sodium (Chloride) 250 mls @ 250 mls/hr IVPB Q24HR [facility] Last Admin: 10/27/17 22:15 Dose: 250 mls Potassium Chloride/Dextrose/Sod Cl (D5 1/2 Ns W/20 Meq Kcl) 1,000 mls @ 75 mls/ hr IV .[id number] [facility] Last Admin: 10/28/17 12:32 Dose: 1,000 mls Piperacillin Sod/Tazobactam (Sod 3.375 gm/ Sodium Chloride) 100 mls @ 200 mls/ hr IVPB 0400,1000,1600,2200 [facility] Last Admin: 10/28/17 20:18 Dose: 100 mls Ibuprofen (Motrin) 600 mg PO Q6H PRN PRN Reason: fever Last Admin: 10/28/17 14:50 Dose: 600 mg Miscellaneous Medication (Pharmacy To Dose) 1 each IVPB ONE PRN PRN Reason: Pharmacy to dose Stop: 11/27/17 14:07 Multivitamins (Theragran) 1 tab PO DAILY [facility] Last Admin: 10/28/17 12:20 Dose: 1 tab Ondansetron HCl (Zofran Odt) 4 mg PO Q6H PRN PRN Reason: Nausea/Vomiting Ondansetron HCl (Zofran) 4 mg IVP Q6H PRN PRN Reason: Nausea/Vomiting Potassium Chloride (K-Dur) 20 meq PO TID-WM [facility] Last Admin: 10/28/17 19:43 Dose: 20 meq Saccharomyces Boulardii (Florastor) 250 mg PO HS [facility] Last Admin: 10/28/17 20:13 Dose: 250 mg Sodium Chloride (Flush - Normal Saline) 10 ml IVF PRN PRN PRN Reason: Saline Flush Thiamine HCl (Thiamine) 100 mg PO DAILY [facility] Last Admin: 10/28/17 12:20 Dose: 100 mg
[2017-10-28] MEDS: Azithromycin 500 MG in Sodium Chloride 0.9% 250 ML 250 ML IVPB SCH (22:15)
[2017-10-29] MEDS: Piperacillin/Tazobactam 3.375 GM in Sodium Chloride 0.9% 100 ML IVPB SCH ×4 (03:19→21:07)
[2017-10-29] MEDS: D5 1/2 NS w/20 mEq KCL 1,000 ML IV SCH ×2 (03:19→17:07)
[2017-10-29 05:44] LABS: #Basophils 0.1 thou/uL (0.0-0.2); #Eosinphils 0.5 thou/uL (0.0-0.7); #Lymphocytes 1.6 thou/uL (1.20-3.40); #Monocytes 1.3 thou/uL (0.11-0.59); #Neutrophils 13.8 thou/uL (1.40-6.50); %Basophils 0.5 % (0.0-1.0); %Eosinophils 2.9 % (0.0-10.0); %Lymphocytes 9.4 % (21.0-51.0); %Monocytes 7.5 % (0.0-10.0); Hematocrit 22.8 % (36.0-47.0); Red Blood Cell (RBC) Count 2.73 mill/uL (4.20-5.40); White Blood Cell (WBC) Count 17.4 thou/uL (4.8-10.8)
[2017-10-29 06:20] LABS: ALT (SGPT) 88 U/L (8-55); AST (SGOT) 88 U/L (5-34); Alkaline Phosphatase 429 U/L (40-150); Anion Gap 10 mmol/L (10-20); BUN (Urea Nitrogen) 12 mg/dL (9.8-20.1); Bilirubin, Total 0.3 mg/dL (0.2-1.2); Calc. Creatinine Clearance 65 mL/min (70-130); Calcium 7.8 mg/dL (7.8-10.44); Carbon Dioxide 20 mmol/L (23-31); Chloride 110 mmol/L (98-107); Estimated GFR-MDRD 64; Globulin 3.2 g/dL (2.4-3.5); Magnesium 1.6 mg/dL (1.6-2.6); Phosphorus 3.3 mg/dL (2.3-4.7); Protein, Total 5.2 g/dL (6.0-8.3)
[2017-10-29] MEDS ORDERED: Polyethylene Glycol 3350 17 GM Packet PO SCH (09:00)
[2017-10-29] MEDS ORDERED: Senokot S 8.6-50 MG TAB PO SCH (09:00)
[2017-10-29] MEDS: Potassium Chloride 20 MEQ TAB PO SCH (09:24)
[2017-10-29] MEDS: Folic Acid 1 MG TAB PO SCH (09:24)
[2017-10-29] MEDS: Multivit, Therapeutic 1 TAB PO SCH (09:24)
[2017-10-29 09:43] LABS: IRF 0.414 Ratio (0.163-0.362)
[2017-10-29 10:11] LABS: Iron 10 ug/dL (50-170)
[2017-10-29] MEDS ORDERED: Iron Sucrose Complex 200 MG in Sodium Chloride 0.9% 250 ML 250 ML IVPB SCH (12:00)
[2017-10-29] MEDS ORDERED: Sodium Ferric Gluconate 250 MG in Sodium Chloride 0.9% 100 ML IVPB SCH (12:00)
[2017-10-29] MEDS ORDERED: D5 1/2 NS w/20 mEq KCL 1,000 ML IV SCH (15:53)
[2017-10-29] MEDS ORDERED: Polyethylene Glycol 3350 17 GM Packet PO PRN (15:57)
--- NOTE | 2017-10-29 17:39 | PDOC.PN ---
- Subjective Encounter Start Date: 10/29/17 Encounter Start Time: 15:30 Patient seen and examined. No new complaints. No overnight events. Feels better - Objective MAR Reviewed: Yes Vital Signs & Weight: Vital Signs (12 hours) Temp Pulse Resp BP Pulse Ox 10/29/17 08:00 98.9 F 83 18 105/68 98 Weight Weight 145 lb 8.081 oz I&O: 10/28/17 10/29/17 10/30/17 06:59 06:59 06:59 Intake Total 3200 1620 Balance 3200 1620 Result Diagrams: 10/29/17 04:26 10/29/17 04:26 Radiology Reviewed by me: Yes (CT chest - Pneumonia, ?Pyeloneph) Phys Exam - Physical Examination Constitutional: NAD Respiratory: no wheezing, no rhonchi Bibasilar rales Cardiovascular: RRR, no rub Gastrointestinal: soft, non-tender, positive bowel sounds Musculoskeletal: no edema Neurological: moves all 4 limbs Dx/Plan - Plan cont current plan of care, DVT proph w/SCDs IMPRESSION: 1. Sepsis due to CAP ?Klebsiella - failed outpt Rx - with persistent fever 2. Chronic Alcoholism - counselled. 3. Abn LFTs - slowly improving 4. Chronic Anemia ? iron def 5. ?Pyelonephritis on CT - urine cultures negative 6. Constipation - resolved PLAN: * Cont Zosyn and Azithromycin * one dose IV iron * AM labs * Change IV fluid rate to 40 ml/hr * Stool for occult blood * Cont to monitor Review of Systems - Review of Systems Cardiovascular: negative: chest pain, palpitations, orthopnea, paroxysmal nocturnal dyspnea, edema, light headedness Gastrointestinal: negative: Nausea, Vomiting, Abdominal Pain, Diarrhea, Constipation, Melena, Hematochezia - Medications/Allergies Allergies/Adverse Reactions: Allergies Allergy/AdvReac Type Severity Reaction Status Date / Time No Known Allergies Allergy Verified 10/25/17 04:39 Medications: Current Medications Alprazolam (Xanax) 0.25 mg PO BIDPRN PRN PRN Reason: Anxiety Cyanocobalamin (Vitamin B-12) 1,000 mcg PO DAILY [facility] Docusate Sodium (Colace) 100 mg PO BID [facility] Famotidine (Pepcid) 20 mg PO BID [facility] Folic Acid (Folvite) 1 mg PO DAILY [facility] Last Admin: 10/29/17 09:24 Dose: 1 mg Guaifenesin/Dextromethorphan (Robitussin Dm) 15 ml PO Q4H PRN PRN Reason: Cough Azithromycin 500 mg/ Sodium (Chloride) 250 mls @ 250 mls/hr IVPB Q24HR [facility] Last Admin: 10/28/17 22:15 Dose: 250 mls Piperacillin Sod/Tazobactam (Sod 3.375 gm/ Sodium Chloride) 100 mls @ 200 mls/ hr IVPB 0400,1000,1600,2200 [facility] Last Admin: 10/29/17 16:38 Dose: 100 mls Ferric Sodium Gluconate Complex 250 mg/ Sodium Chloride 120 mls @ 60 mls/hr IVPB NOW [facility] Stop: 10/29/17 18:00 Last Admin: 10/29/17 14:18 Dose: 120 mls Potassium Chloride/Dextrose/Sod Cl (D5 1/2 Ns W/20 Meq Kcl) 1,000 mls @ 40 mls/ hr IV .Q24H [facility] Last Admin: 10/29/17 17:07 Dose: Not Given Ibuprofen (Motrin) 600 mg PO Q6H PRN PRN Reason: fever Last Admin: 10/28/17 14:50 Dose: 600 mg Miscellaneous Medication (Pharmacy To Dose) 1 each IVPB ONE PRN PRN Reason: Pharmacy to dose Stop: 11/27/17 14:07 Multivitamins (Theragran) 1 tab PO DAILY [facility] Last Admin: 10/29/17 09:24 Dose: 1 tab Ondansetron HCl (Zofran Odt) 4 mg PO Q6H PRN PRN Reason: Nausea/Vomiting Ondansetron HCl (Zofran) 4 mg IVP Q6H PRN PRN Reason: Nausea/Vomiting Polyethylene Glycol (Miralax) 17 gm PO DAILY PRN PRN Reason: Constipation Saccharomyces Boulardii (Florastor) 250 mg PO HS [facility] Last Admin: 10/28/17 20:13 Dose: 250 mg Sodium Chloride (Flush - Normal Saline) 10 ml IVF PRN PRN PRN Reason: Saline Flush Thiamine HCl (Thiamine) 100 mg PO DAILY [facility] Last Admin: 10/29/17 09:24 Dose: 100 mg
[2017-10-29] MEDS: Ibuprofen 200 MG TAB PO PRN (18:38)
[2017-10-29] MEDS: Saccharomyces boulardii 250 MG CAP PO SCH (21:07)
[2017-10-29] MEDS: Famotidine 20 MG TAB PO SCH (21:07)
[2017-10-29] MEDS: Docusate 100 MG CAP PO SCH (21:07)
[2017-10-29] MEDS: Azithromycin 500 MG in Sodium Chloride 0.9% 250 ML 250 ML IVPB SCH (22:59)
[2017-10-30] MEDS: Piperacillin/Tazobactam 3.375 GM in Sodium Chloride 0.9% 100 ML IVPB SCH ×4 (03:22→22:09)
[2017-10-30 05:58] LABS: ALT (SGPT) 83 U/L (8-55); AST (SGOT) 83 U/L (5-34); Alkaline Phosphatase 414 U/L (40-150); Anion Gap 7 mmol/L (10-20); BUN (Urea Nitrogen) 11 mg/dL (9.8-20.1); Bilirubin, Total 0.3 mg/dL (0.2-1.2); Calc. Creatinine Clearance 53 mL/min (70-130); Calcium 7.9 mg/dL (7.8-10.44); Carbon Dioxide 22 mmol/L (23-31); Chloride 110 mmol/L (98-107); Estimated GFR-MDRD 51; Globulin 3.1 g/dL (2.4-3.5)
[2017-10-30 06:04] LABS: Band 14 % (5-11); Hematocrit 22.2 % (36.0-47.0); Mean Platelet Volume 5.9 fL (7.4-10.4); Neutrophil 64 % (42-75); Red Blood Cell (RBC) Count 2.67 mill/uL (4.20-5.40); White Blood Cell (WBC) Count 14.1 thou/uL (4.8-10.8)
[2017-10-30] MEDS: Docusate 100 MG CAP PO SCH ×2 (09:30→20:35)
[2017-10-30] MEDS: Multivit, Therapeutic 1 TAB PO SCH (09:31)
[2017-10-30] MEDS: Famotidine 20 MG TAB PO SCH ×2 (09:31→20:34)
[2017-10-30] MEDS: Folic Acid 1 MG TAB PO SCH (09:31)
[2017-10-30] MEDS: Cyanocobalamin (Vitamin B-12) 1,000 MCG TAB PO SCH (09:32)
[2017-10-30 12:14] LABS: A/G Ratio 0.5 (0.7-1.7); Albumin 1.8 g/dL (2.9-4.4); Alpha 1 0.4 g/dL (0.0-0.4); Alpha 2 0.8 g/dL (0.4-1.0); Beta 0.9 g/dL (0.7-1.3); Gamma 1.4 g/dL (0.4-1.8); Globulin, Total 3.6 g/dL (2.2-3.9); M-Spike Not Observed g/dL (Not Observed)
[2017-10-30 16:14] LABS: Anti-Striation AB Negative (Neg:<1:40); Antiparietal Cell Ab 5.5 Units (0.0-20.0); Complement C4 25 mg/dL (14-44); Mitochondrial (M2) ABS 14.1 Units (0.0-20.0); SCL-70 IgG AutoAb <0.2 AI (0.0-0.9); Smith IgG AutoAb <0.2 AI (0.0-0.9); Smooth Muscle AB 15 Units (0-19); Thyroid Peroxidase Abs 11 IU/mL (0-34); U1 RNP/SNRNP IgG AutoAb <0.2 AI (0.0-0.9)
[2017-10-30] MEDS: Ibuprofen 200 MG TAB PO PRN (16:44)
--- NOTE | 2017-10-30 18:59 | HP ---
HISTORY OF PRESENT ILLNESS: Patient is having some cough with more sputum production, a little bit o f dyspnea. No chest pain, no back pain, no abdominal pain, or diarrhea. No genitourinary symptoms. PHYSICAL EXAMINATION: VITAL SIGNS: Still with intermittent temperature elevation at 101.9 on 10/29/2017 and now 100.6. GENERAL: She is awake. LUNGS: She has still bibasilar inspiratory crackles, which are quite prominent, actually heard up to one-third of left and right hemithoraces. HEART: S1, S2, regular rate. ABDOMEN: Soft. Not distended. NEUROLOGIC: Nonfocal. LABORATORY AND DIAGNOSTIC DATA: White cell count 14,000, hemoglobin 7, MCV 82, platelets 504, 64% ne utrophils, 9% lymphocytes. Chemistry: AST 83, ALT 83, alkaline phosphatase 414, albumin 1.9. JACQUELINE p rofile was negative for all the different auto-antibody specificities. As noted previously, the CT o f chest demonstrated pulmonary fibrosis and ground-glass opacity. ASSESSMENT: Alcohol dependency syndrome with hepatitis and chronic interstitial pneumonia with some element of fibrosis, but still with some element of alveolitis. Possibility of cryptogenic organizin g pneumonia is considered and atypical infection is also still within the differential diagnosis, it has been worked up. We will consult Pulmonary, may need bronchoscopy.
--- NOTE | 2017-10-30 19:55 | PDOC.PN ---
- Subjective Encounter Start Date: 10/30/17 Encounter Start Time: 13:00 Patient seen and examined. No new complaints. No overnight events - Objective MAR Reviewed: Yes Vital Signs & Weight: Vital Signs (12 hours) Temp Pulse Resp Pulse Ox 10/30/17 16:00 100.6 F H 10/30/17 08:00 97.5 F L 65 16 98 Weight Weight 145 lb 8.081 oz I&O: 10/29/17 10/30/17 10/31/17 06:59 06:59 06:59 Intake Total 1620 3110 1400 Balance 1620 3110 1400 Result Diagrams: 10/31/17 04:33 10/31/17 04:33 Phys Exam - Physical Examination Constitutional: NAD Respiratory: no wheezing, no rhonchi Rales B/L Cardiovascular: RRR, no rub Gastrointestinal: soft, non-tender, positive bowel sounds Musculoskeletal: no edema Neurological: non-focal, moves all 4 limbs Psychiatric: A&O x 3 Dx/Plan - Plan DVT proph w/SCDs IMPRESSION: 1. Sepsis due to CAP ?Klebsiella - failed outpt Rx - with persistent fever 2. Chronic Alcoholism - counselled. 3. Abn LFTs - slowly improving 4. Chronic Anemia ? iron def, occult blood negative 5. ?Pyelonephritis on CT - urine cultures negative 6. Constipation - resolved PLAN: * ID following * Cont Zosyn and Azithromycin * AM labs * Cont to monitor * DC home on Cipro/Clindamycin if afebrile for 24 hr Review of Systems - Medications/Allergies Allergies/Adverse Reactions: Allergies Allergy/AdvReac Type Severity Reaction Status Date / Time No Known Allergies Allergy Verified 10/25/17 04:39 Medications: Current Medications Alprazolam (Xanax) 0.25 mg PO BIDPRN PRN PRN Reason: Anxiety Cyanocobalamin (Vitamin B-12) 1,000 mcg PO DAILY [facility] Last Admin: 10/30/17 09:32 Dose: 1,000 mcg Docusate Sodium (Colace) 100 mg PO BID [facility] Last Admin: 10/30/17 09:30 Dose: 100 mg Famotidine (Pepcid) 20 mg PO BID [facility] Last Admin: 10/30/17 09:31 Dose: 20 mg Folic Acid (Folvite) 1 mg PO DAILY [facility] Last Admin: 10/30/17 09:31 Dose: 1 mg Guaifenesin/Dextromethorphan (Robitussin Dm) 15 ml PO Q4H PRN PRN Reason: Cough Azithromycin 500 mg/ Sodium (Chloride) 250 mls @ 250 mls/hr IVPB Q24HR [facility] Last Admin: 10/29/17 22:59 Dose: 250 mls Piperacillin Sod/Tazobactam (Sod 3.375 gm/ Sodium Chloride) 100 mls @ 200 mls/ hr IVPB 0400,1000,1600,2200 [facility] Last Admin: 10/30/17 16:12 Dose: 100 mls Ibuprofen (Motrin) 600 mg PO Q6H PRN PRN Reason: fever Last Admin: 10/30/17 16:44 Dose: 600 mg Miscellaneous Medication (Pharmacy To Dose) 1 each IVPB ONE PRN PRN Reason: Pharmacy to dose Stop: 11/27/17 14:07 Multivitamins (Theragran) 1 tab PO DAILY [facility] Last Admin: 10/30/17 09:31 Dose: 1 tab Ondansetron HCl (Zofran Odt) 4 mg PO Q6H PRN PRN Reason: Nausea/Vomiting Ondansetron HCl (Zofran) 4 mg IVP Q6H PRN PRN Reason: Nausea/Vomiting Polyethylene Glycol (Miralax) 17 gm PO DAILY PRN PRN Reason: Constipation Saccharomyces Boulardii (Florastor) 250 mg PO HS [facility] Last Admin: 10/29/17 21:07 Dose: 250 mg Sodium Chloride (Flush - Normal Saline) 10 ml IVF PRN PRN PRN Reason: Saline Flush Thiamine HCl (Thiamine) 100 mg PO DAILY [facility] Last Admin: 10/30/17 09:31 Dose: 100 mg
[2017-10-30] MEDS: Saccharomyces boulardii 250 MG CAP PO SCH (20:34)
[2017-10-30] MEDS: Azithromycin 500 MG in Sodium Chloride 0.9% 250 ML 250 ML IVPB SCH (23:48)
[2017-10-31] MEDS: Piperacillin/Tazobactam 3.375 GM in Sodium Chloride 0.9% 100 ML IVPB SCH ×4 (04:41→22:32)
[2017-10-31 06:21] LABS: ALT (SGPT) 67 U/L (8-55); AST (SGOT) 64 U/L (5-34); Alkaline Phosphatase 418 U/L (40-150); Anion Gap 13 mmol/L (10-20); BUN (Urea Nitrogen) 11 mg/dL (9.8-20.1); Bilirubin, Total 0.2 mg/dL (0.2-1.2); Calc. Creatinine Clearance 47 mL/min (70-130); Carbon Dioxide 18 mmol/L (23-31); Chloride 109 mmol/L (98-107); Estimated GFR-MDRD 44; Globulin 3.4 g/dL (2.4-3.5); Protein, Total 5.5 g/dL (6.0-8.3)
[2017-10-31 06:54] LABS: Band 3 % (5-11); Mean Platelet Volume 6.4 fL (7.4-10.4); Neutrophil 82 % (42-75); Red Blood Cell (RBC) Count 2.79 mill/uL (4.20-5.40); White Blood Cell (WBC) Count 16.4 thou/uL (4.8-10.8)
[2017-10-31] MEDS: Multivit, Therapeutic 1 TAB PO SCH (08:15)
[2017-10-31] MEDS: Ibuprofen 200 MG TAB PO PRN ×2 (08:16→20:30)
[2017-10-31] MEDS: Folic Acid 1 MG TAB PO SCH (08:17)
[2017-10-31] MEDS: Famotidine 20 MG TAB PO SCH ×2 (08:17→20:30)
[2017-10-31] MEDS: Cyanocobalamin (Vitamin B-12) 1,000 MCG TAB PO SCH (08:18)
[2017-10-31] MEDS: Docusate 100 MG CAP PO SCH ×2 (08:22→20:30)
[2017-10-31] MEDS: Saccharomyces boulardii 250 MG CAP PO SCH (20:30)
--- NOTE | 2017-10-31 20:41 | PDOC.PN ---
- Subjective Encounter Start Date: 10/31/17 Encounter Start Time: 15:00 Patient seen and examined. No new complaints. No overnight events. Ambulating in hallways. No CP. - Objective MAR Reviewed: Yes Vital Signs & Weight: Vital Signs (12 hours) Temp 10/31/17 16:16 98.1 F 10/31/17 11:30 98.0 F Weight Weight 145 lb 8.081 oz I&O: 10/30/17 10/31/17 11/01/17 06:59 06:59 06:59 Intake Total 3110 2380 1000 Balance 3110 2380 1000 Result Diagrams: 10/31/17 04:33 10/31/17 04:33 Phys Exam - Physical Examination Constitutional: NAD Respiratory: no wheezing B/L rhonchi/rales unchanged Cardiovascular: RRR, no rub Gastrointestinal: soft, non-tender, positive bowel sounds Musculoskeletal: no edema Dx/Plan - Plan DVT proph w/SCDs IMPRESSION: 1. Sepsis due to CAP ?Klebsiella - failed outpt Rx - with persistent fever - improving 2. Chronic Alcoholism - counselled. 3. Abn LFTs - slowly improving 4. Chronic Anemia ? iron def, occult blood negative 5. ?Pyelonephritis on CT - urine cultures negative 6. Constipation - resolved 7. Moderate Protein Calorie Malnutrition PLAN: * Cont Zosyn * DC Azithromycin after todays dose * AM labs * Cont to monitor * DC home on Cipro/Clindamycin in AM if stable Review of Systems - Medications/Allergies Allergies/Adverse Reactions: Allergies Allergy/AdvReac Type Severity Reaction Status Date / Time No Known Allergies Allergy Verified 10/25/17 04:39 Medications: Current Medications Alprazolam (Xanax) 0.25 mg PO BIDPRN PRN PRN Reason: Anxiety Cyanocobalamin (Vitamin B-12) 1,000 mcg PO DAILY [facility] Last Admin: 10/31/17 08:18 Dose: 1,000 mcg Docusate Sodium (Colace) 100 mg PO BID [facility] Last Admin: 10/31/17 20:30 Dose: Not Given Famotidine (Pepcid) 20 mg PO BID [facility] Last Admin: 10/31/17 20:30 Dose: 20 mg Folic Acid (Folvite) 1 mg PO DAILY [facility] Last Admin: 10/31/17 08:17 Dose: 1 mg Guaifenesin/Dextromethorphan (Robitussin Dm) 15 ml PO Q4H PRN PRN Reason: Cough Azithromycin 500 mg/ Sodium (Chloride) 250 mls @ 250 mls/hr IVPB Q24HR [facility] Stop: 10/31/17 23:59 Last Admin: 10/30/17 23:48 Dose: 250 mls Piperacillin Sod/Tazobactam (Sod 3.375 gm/ Sodium Chloride) 100 mls @ 200 mls/ hr IVPB 0400,1000,1600,2200 [facility] Last Admin: 10/31/17 15:56 Dose: 100 mls Ibuprofen (Motrin) 600 mg PO Q6H PRN PRN Reason: fever Last Admin: 10/31/17 20:30 Dose: 600 mg Miscellaneous Medication (Pharmacy To Dose) 1 each IVPB ONE PRN PRN Reason: Pharmacy to dose Stop: 11/27/17 14:07 Multivitamins (Theragran) 1 tab PO DAILY [facility] Last Admin: 10/31/17 08:15 Dose: 1 tab Ondansetron HCl (Zofran Odt) 4 mg PO Q6H PRN PRN Reason: Nausea/Vomiting Ondansetron HCl (Zofran) 4 mg IVP Q6H PRN PRN Reason: Nausea/Vomiting Polyethylene Glycol (Miralax) 17 gm PO DAILY PRN PRN Reason: Constipation Saccharomyces Boulardii (Florastor) 250 mg PO HS [facility] Last Admin: 10/31/17 20:30 Dose: 250 mg Sodium Chloride (Flush - Normal Saline) 10 ml IVF PRN PRN PRN Reason: Saline Flush Thiamine HCl (Thiamine) 100 mg PO DAILY [facility] Last Admin: 10/31/17 08:16 Dose: 100 mg
--- NOTE | 2017-10-31 20:54 | CON ---
DATE OF CONSULTATION: 10/31/2017 HISTORY OF PRESENT ILLNESS: Anirudh is a 67-year-old female. She readily admits to heavy drinking prior to admission. She was admitted on 10/24/2017. I was consulted today. Here when she presented , she had 4-5 days of cough and chest congestion as well as shortness of breath and chills. She was admitted with a diagnosis of pneumonia and has been treated. I was consulted because of an a bnormal chest CT from what I can tell. Her temperature maximum was 100.1. She says she feels great compared to when she came in. PAST MEDICAL HISTORY: Negative for admissions for any illness. PAST SURGICAL HISTORY: Remarkable for cholecystectomy and hysterectomy. SOCIAL HISTORY: She has never smoked. She says she has been a heavy drinker, especially since her h usband . Interestingly enough, she denies drinking just prior to admission to the hospital. FAMILY HISTORY: Positive for alcoholism. Negative for lung disease at an early age. REVIEW OF SYSTEMS: Remarkable neurologically for complaints of weakness prior to admission. She den ies headache. She denies hemoptysis. She has had no bright red blood per rectum or melena. She den ies gross hematuria. Remainder of her 10-point review of systems is negative. There is no family to confirm the history provided. The nursing staff says she has been doing well. PHYSICAL EXAMINATION: GENERAL: She is in no distress at the bedside. VITAL SIGNS: Temperature maximum today is 100.1, heart rate is in the 90s, respiratory rate is in th e teens, blood pressure 118/69. HEENT: Pupils are equal. Sclerae are anicteric. NECK: Supple. LUNGS: Remarkable for crackles at her lung bases. HEART: Regular rhythm. S1 and S2 are normal. ABDOMEN: Soft and nontender. EXTREMITIES: Without clubbing, cyanosis, or edema. LABORATORY AND X-RAY FINDINGS: I do not see any blood cultures this admission. She has a negative u rine culture and cryptococcal antigen that was negative and negative sputum for acid-fast bacilli and negative stool Hemoccult. White count 16.4, hemoglobin 7.5, platelets 535,000. MCV is 82. Sodium 136, potassium 3.8, chloride 109, bicarbonate 18, BUN 11, creatinine 1.22. Iron is 10. TIBC is 136, this is more of a pattern o f anemia of chronic disease and iron deficiency. AST 64, ALT 68, alkaline phosphatase 418. Bilirubi n was normal. Albumin is 2.1. Chest, abdomen, and pelvis CT was done on the , this was reviewed by me. There is some subpleura l fibrosis posteriorly at both lung bases. There are some interstitial changes at the apices. It is unclear how much of this is old or new. She had perinephric fat stranding. IMPRESSION: 1. Bronchitis with perhaps coexistent pneumonia. She says she is clinically much better than on pre sentation. 2. Alcoholic hepatitis. 3. Hypoalbuminemia secondary to alcoholism. 4. Anemia of chronic disease, most likely secondary to chronic heavy alcohol intake and she might be nefit from transfusion. 5. Scattered patchy interstitial fibrotic changes. It is unclear how much of this is new and old. This needs to be followed as an outpatient with serial CTs. No bronchoscopy in my opinion is indicat ed at this point in time. Her HIV is negative. PLAN: Managing antigens negative. Her hepatitis panel is negative. Mycoplasma and strep pneumonia and legionella workup was all negative. Suspect if she did have pneumonia, it would be a gram negati ve organism. She is clinically improving by the history provided. Reviewed all the labs and the rad iographs. I will be happy to follow her as an outpatient. Consult time 50 minutes of which greater than 50% we re spent counseling the patient and coordinating care with the nursing staff.
[2017-10-31] MEDS: Azithromycin 500 MG in Sodium Chloride 0.9% 250 ML 250 ML IVPB SCH (23:17)
[2017-11-01] MEDS: Piperacillin/Tazobactam 3.375 GM in Sodium Chloride 0.9% 100 ML IVPB SCH ×2 (04:11→10:13)
[2017-11-01] MEDS: Folic Acid 1 MG TAB PO SCH (07:49)
[2017-11-01] MEDS: Multivit, Therapeutic 1 TAB PO SCH (07:49)
[2017-11-01] MEDS: Cyanocobalamin (Vitamin B-12) 1,000 MCG TAB PO SCH (07:49)
[2017-11-01] MEDS: Famotidine 20 MG TAB PO SCH (07:49)
[2017-11-01] MEDS: Docusate 100 MG CAP PO SCH (07:50)
[2017-11-01 08:14] VITALS: BP 139/78; TEMP 98.7
--- NOTE | 2017-11-01 11:10 | DIS ---
DATE OF DISCHARGE: 11/01/2017 DISCHARGE DISPOSITION: Home. FOLLOWUP: Follow up with primary care physician Dr. Alek Powell in 1 week. Follow up with Dr. Abdoulaye kaur and Dr. Chen in one week. ALLERGIES: No known drug allergies. The patient was seen and examined on the day of discharge. Denies any new complaints. Overall, feel s better. Requesting to be discharged. DISCHARGE MEDICATIONS: 1. Ciprofloxacin 500 mg b.i.d. for 1 week. 2. Clindamycin 150 mg t.i.d. for 1 week. 3. Mmny-laz-mayhpva multivitamin, thiamine, folic acid, and probiotics were recommended. INPATIENT CONSULTANTS: Pulmonary, Dr. Ascencio and Infectious Disease, Dr. Chen. BRIEF HOSPITAL COURSE: The patient is a 67-year-old female with chronic alcoholism, who presented to the hospital with shortness of breath with chills. Her chest x-ray on admission was consistent with left mid and lower lung infiltrate. She was admitted to the hospital with a diagnosis of pneumonia and was started on broad spectrum antibiotics. Please note that patient had failed outpatient therap y. Please refer to the history and physical dated 10/24/2017 for further details. The patient was admitted to the medical floor with a diagnosis of sepsis secondary to pneumonia. [facility] te blood cell count on admission was 19.7 with left shift. The patient was started on azithromycin w ith ceftriaxone, which was later changed to cefepime due to persistent fever. The patient was seen b y Infectious Disease, Dr. Chen as well due to persistent fever. Ceftriaxone was changed to Zosyn fo r questionable aspiration versus anaerobic pneumonia. The patient had multiple testing during this h ospital stay as below. CT scan of the chest, abdomen, and pelvis was consistent with pulmonary fibro sis with pneumonia. There was also some bilateral perinephric fat stranding, which was nonspecific. The patient also had abnormal LFTs on admission that gradually improved. Her repeat labs after 1 wee k is recommended. Primary care physician is advised to follow. She will follow up with Infectious Subhash mason and Pulmonary as outpatient. FINAL DIAGNOSES: 1. Sepsis due to community-acquired pneumonia. Questionable gram negative. Please note that patien t failed outpatient therapy. 2. Chronic alcoholism. 3. Pulmonary fibrosis. 4. Abnormal liver function tests, probably secondary to sepsis. 5. Chronic anemia. Stool for occult blood was negative. Reticulocyte was 1.0. 6. Questionable pyelonephritis on the CT. Urine cultures were negative. 7. Constipation, resolved. 8. Moderate protein calorie malnutrition. SIGNIFICANT LABORATORY DATA: Iron was 10 with TIBC 136, ferritin 279. AST on admission was 191 at discharge 64. ALT on admission was 151 at discharge 67. Alkaline phosph atase on admission was 689 at discharge 418. LDH was 240. Serum electrophoresis was negative for monoclonal protein. JACQUELINE screen was negative. Compliment C3 w as 128, C4 was 25.9. Antismooth muscle antibody was 15, thyroid peroxidase antibody 11, antiparietal cell antibody 5.5, mitochondrial M2 antibody 14.1, striated muscle antibody negative. Urine for his toplasma antigen was negative. HIV negative. Mycoplasma titer was negative. QuantiFERON testing is pending at this time. Primary care physician is advised to follow. Haptoglobi n was 355. Reticulocyte was 1.0. Hemoglobin at discharge is 7.5. Plan of care was discussed with the patient in detail. She stated understanding. Total time coordinating the discharge of this patient was 33 minutes.
== END 2017-11-01 12:00 | disposition home or self-care (01) | DRG 871 ==
LOC: ERS 15:38 → T4-A 19:35
PROVIDERS: ADMIT Internal Medicine Addiction Medicine; ATTEND Internal Medicine Addiction Medicine
DX: A41.50 Gram-negative sepsis, unspecified (principal); J18.9 Pneumonia, unspecified organism; E44.0 Moderate protein-calorie malnutrition; J84.10 Pulmonary fibrosis, unspecified; K70.10 Alcoholic hepatitis without ascites; E88.09 Other disorders of plasma-protein metabolism, not elsewhere classified; R65.20 Severe sepsis without septic shock; F10.20 Alcohol dependence, uncomplicated; K59.00 Constipation, unspecified; Z68.28 Body mass index [BMI] 28.0-28.9, adult; D63.8 Anemia in other chronic diseases classified elsewhere; G72.9 Myopathy, unspecified; M25.50 Pain in unspecified joint; R74.0 Nonspecific elevation of levels of transaminase and lactic acid dehydrogenase [LDH]
CPT/HCPCS: 36415; 71010; 71020; 71260; 74177; 76705; 80048; 80053; 80074; 81003; 81015; 81025; 82150; 82274; 82550; 82728; 83010; 83520; 83540; 83550; 83615; 83690; 83735; 84100; 84165; 85007; 85025; 85027; 85046; 86140; 86160; 86225; 86235; 86376; 86431; 86480; 87086; 87116; 87206; 87385; 87389; 87633; 87798; 87899; 96361; 96374; 96375; A4216; J0456; J0692; J0696; J1650; J2405; J2543; J2916; J3411; J7042; J7050